=== PATIENT | male | born 1990 | race Caucasian/White ===

== ENCOUNTER 2025-03-12 18:25 | Emergency (ER) | payer OTHER, SELFPAY ==
[2025-03-12 18:29] VITALS: BP 114/67
[2025-03-12] MEDS: TYLENOL 1000 MG PO (21:18)
[2025-03-12 21:41] LABS: COVID-19 Antigen Negative (Negative)
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
== END 2025-03-12 22:11 | disposition home or self-care (01) ==
LOC: EMR 18:25
PROVIDERS: Nurse Practitioner; EMERGENCY PHYSICIAN Emergency Medicine
DX: R50.9 Fever, unspecified (principal)
CPT/HCPCS: 99282; 87502; 87811